=== PATIENT | male | born 1975 | race African-American/Black ===

== ENCOUNTER 2019-06-26 15:48 | Emergency (ER) | payer SELFPAY ==
[2019-06-26 16:57] VITALS: BP 173/93
--- NOTE | 2019-06-26 17:45 | RAD ---
Chest, PA and Lateral: Technique: PA and lateral views of the chest were obtained. History: Cough. Comparison: None. Findings: The heart size grossly appears unremarkable. Mild right lung base airspace opacities likely atelectasis or infiltrate. IMPRESSION: Mild right lung base airspace opacity likely atelectasis or infiltrate. Follow-up to resolution. Electronically signed by: Jax Kwan MD (06/26/2019 5:42 PM) [facility]
[2019-06-26] MEDS ORDERED: ALBU2.5V8 IH (18:24)
[2019-06-26] MEDS ORDERED: DOXY100T PO (18:24)
[2019-06-26] MEDS ORDERED: BENZ100C PO (18:24)
[2019-06-26] MEDS ORDERED: PRED50TA PO (18:24)
--- NOTE | 2019-06-26 18:25 | PHYS DOC ---
Past Medical History Past Medical History: No Pertinent History (DAMION NOE APRN) Past Surgical History: No Surgical History (DAMION NOE APRN) Alcohol Use: None Drug Use: Marijuana (DAMION ONE APRN) Attending Signature I have participated in the care of this patient and I have reviewed and agree with all pertinent clinical information above including history, exam, and recommendations. (RUTH LOWRY MD) Adult General Chief Complaint Chief Complaint: FLU SYMPTOM HPI HPI Patient is a 44 year old male who presents to the ED today with a fever cough and chills that began 4 days ago. Patient reports the son has influenza B. (DAMION NOE APRN) Review of Systems Review of Systems Constitutional: Reports fever and chills Eyes: Denies change in visual acuity, redness, or eye pain [] HENT: Denies nasal congestion or sore throat [] Respiratory: Reports cough denies shortness of breath [] Cardiovascular: No additional information not addressed in HPI [] GI: Denies abdominal pain, nausea, vomiting, bloody stools or diarrhea [] : Denies dysuria or hematuria [] Musculoskeletal: Denies back pain or joint pain [] Integument: Denies rash or skin lesions [] Neurologic: Denies headache, focal weakness or sensory changes [] All other systems were reviewed and found to be within normal limits, except as documented in this note. (DAMION NOE APRN) Allergies Allergies Allergies Coded Allergies Type Severity Reaction Last Updated Verified No Known Drug Allergies 08/06/14 No (RUTH LOWRY MD) Physical Exam Physical Exam Constitutional: Well developed, well nourished, no acute distress, non-toxic appearance. [] HENT: Normocephalic, atraumatic, bilateral external ears normal, oropharynx moist, no oral exudates, nose normal. [] Eyes: PERRLA, EOMI, conjunctiva normal, no discharge. [] Neck: Normal range of motion, no tenderness, supple, no stridor. [] Cardiovascular:Heart rate regular rhythm, no murmur [] Lungs & Thorax: Bilateral breath sounds clear to auscultation [] Abdomen: Bowel sounds normal, soft, no tenderness, no masses, no pulsatile masses. [] Skin: Warm, dry, no erythema, no rash. [] Back: No tenderness, no CVA tenderness. [] Extremities: No tenderness, no cyanosis, no clubbing, ROM intact, no edema. [] Neurologic: Alert and oriented X 3, normal motor function, normal sensory function, no focal deficits noted. [] Psychologic: Affect normal, judgement normal, mood normal. [] (DAMION NOE APRN) Current Patient Data Vital Signs Vital Signs Date Time Temp Pulse Resp B/P (MAP) Pulse Ox O2 Delivery O2 Flow Rate FiO2 06/26/19 16:57 98.8 114 20 173/93 (119) 97 Room Air 98.8 (RUTH LOWRY MD) EKG EKG [] (DAMION NOE APRN) Radiology/Procedures Radiology/Procedures []PROCEDURE: CHEST PA & LATERAL Chest, PA and Lateral: Technique: PA and lateral views of the chest were obtained. History: Cough. Comparison: None. Findings: The heart size grossly appears unremarkable. Mild right lung base airspace opacities likely atelectasis or infiltrate. IMPRESSION: Mild right lung base airspace opacity likely atelectasis or infiltrate. Follow-up to resolution. Electronically signed by: Jax Burgess MD (06/26/2019 5:42 PM) [facility] DICTATED and SIGNED BY: JAX BURGESS MD DATE: 06/26/191741 (DAMION NOE APRN) Course & Med Decision Making Course & Med Decision Making Pertinent Labs and Imaging studies reviewed. (See chart for details) This is a 44-year-old male patient presenting to the ED today with a fever, cough and chills for 4 days. Chest x-ray noted for possible atelectasis or infiltrate. We will send patient home on doxycycline to cover him for pneumonia. Tylenol/Motrin for pain or fever. Follow-up with primary care doctor in [place] [facility]. (DAMION NOE APRN) Dragon Disclaimer Dragon Disclaimer This electronic medical record was generated, in whole or in part, using a voice recognition dictation system. (DAMION NOE APRN) Departure Departure Impression: Primary Impression: Fever Additional Impression: Right lower lobe pulmonary infiltrate Disposition: ADMITTED INPATIENT Condition: STABLE Referrals: NO PCP (PCP) Follow-up with your own doctor in 1-2 weeks Patient Instructions: Fever, Adult, [id number], Pneumonia, Adult, [id number] Additional Instructions: You were evaluated in the emergency room, your chest x-ray was noted for possible pneumonia. We put you on antibiotics. Please take them as prescribed until completed. Follow-up with your own doctor in 1-2 weeks. Scripts Prednisone (PREDNISONE) 50 Mg Tablet 1 TAB PO DAILY, #5 TAB Prov: DAMION NOE APRN 06/26/19 Albuterol Sulfate (Proair Hfa) 8.5 Gm Hfa.aer.ad 2 PUFF IH PRN Q4-6HRS PRN for wheezing for 21 Days, #1 INHALER 0 Refills Prov: DAMION NOE APRN 06/26/19 Benzonatate (TESSALON PERLE) 100 Mg Capsule 1 CAP PO TID, #30 CAP Prov: DAMION NOE APRN 06/26/19 Doxycycline Hyclate (DOXYCYCLINE HYCLATE) 100 Mg Tablet 1 TAB PO BID, #14 TAB Prov: DAMION NOE APRN 06/26/19 Problem Qualifiers Primary Impression: Fever Fever type: unspecified Qualified Codes: R50.9 - Fever, unspecified DAMION NOE APRN Jun 26, 2019 18:24 RUTH LOWRY MD Jun 27, 2019 02:15
== END 2019-06-26 18:42 | disposition other institution (70) ==
LOC: ER 15:48
DX: R50.9 Fever, unspecified (principal); R91.8 Other nonspecific abnormal finding of lung field; F12.90 Cannabis use, unspecified, uncomplicated
CPT/HCPCS: 71046; 99284

== ENCOUNTER 2021-02-04 20:36 | Emergency (ER) | payer SELFPAY ==
[~2021-02-04] VITALS: Ht 185.4 cm; Wt 140.5 kg
[~2021-02-04 20:36] MED LIST: ALBU2.5V8 IH; BENZ100C PO; DOXY100T PO; PRED50TA PO
--- NOTE | 2021-02-04 23:07 | PHYS DOC ---
Past Medical History Past Medical History: High Cholesterol, Hypertension Past Surgical History: No Surgical History Smoking Status: Current Every Day Smoker Alcohol Use: None Drug Use: Marijuana General Adult EDM: Chief Complaint: SHORTNESS OF BREATH HPI: HPI: Patient is a 45 year old male who presents with shortness of breath and chest tightness for the past five days. Also reports associated fevers, myalgias, and loss of taste/smell. Believes he was exposed to COVID from his step-son who recently had it. He had a negative COVID test several days ago. He has not been vaccinated. No alleviating/aggravating factors. Denies cough, congestion, sore throat, abdominal pain, or nausea/vomiting/diarrhea. Review of Systems: Review of Systems: Constitutional: Reports fevers. Denies chills Eyes: Denies redness or eye pain HENT: Reports loss of taste/smell. Denies nasal congestion or sore throat Respiratory: Reports shortness of breath. Denies cough Cardiovascular: Reports chest tightness. Denies palpitations GI: Denies abdominal pain, nausea, or vomiting : Denies dysuria or hematuria Musculoskeletal: Reports myalgias. Denies back pain or joint pain Integument: Denies rash or skin lesions Neurologic: Denies headache, focal weakness or sensory changes Complete systems were reviewed and found to be within normal limits, except as documented in this note. Heart Score: C/O Chest Pain: Yes HEART Score for Chest Pain: HEART Score for Chest Pain Response (Comments) Value History Slighlty/Non-Suspicious 0 ECG Normal 0 Age >45 - < 65 1 Risk Factors 1 or 2 Risk Factors 1 Troponin < Normal Limit 0 Total 2 Risk Factors: Risk Factors: DM, Current or recent (<one month) smoker, HTN, HLP, family history of CAD, obesity. Risk Scores: Score 0 - 3: 2.5% MACE over next 6 weeks - Discharge Home Score 4 - 6: 20.3% MACE over next 6 weeks - Admit for Clinical Observation Score 7 - 10: 72.7% MACE over next 6 weeks - Early Invasive Strategies Allergies: Allergies: Allergies Coded Allergies Type Severity Reaction Last Updated Verified No Known Drug Allergies 08/06/14 No Physical Exam: PE: Constitutional: Well developed, well nourished, no acute distress, non-toxic appearance HENT: Normocephalic, atraumatic Eyes: PERRL, EOMI, conjunctiva normal, no discharge Neck: Normal range of motion, no tenderness, supple Lungs & Thorax: No respiratory distress, equal chest rise and fall. Diffuse wheezes throughout the left lung noriega. Heart tachycardic and regular. Abdomen: Soft, no tenderness Skin: Warm, dry, no erythema, no rash Back: No tenderness, no CVA tenderness Extremities: No tenderness, ROM intact, no edema Neurologic: Alert and oriented X 3, normal motor function, normal sensory function, no focal deficits noted Psychologic: Affect normal, judgment normal Current Patient Data: Vital Signs: Vital Signs Date Time Temp Pulse Resp B/P (MAP) Pulse Ox O2 Delivery O2 Flow Rate FiO2 02/04/21 21:33 108 94 Room Air EKG: EK: 115 BPM, sinus tachycardia, occasional PVCs note, no ST segment elevation, QRS 72ms, QT/QTc 302/419ms Radiology/Procedures: Radiology/Procedures: Exam: Chest one view INDICATION: Cough, Covid TECHNIQUE: Frontal view of the chest Comparisons: None FINDINGS: The cardiomediastinal silhouette and pulmonary vessels are within normal limits. Linear bandlike opacity at the left lung base. No pleural effusion. IMPRESSION: Left basilar atelectasis Electronically signed by: Danyel Nash MD (02/04/2021 11:47 PM) [facility] Course & Med Decision Making: Course & Med Decision Making 45 year old male presents with history and physical consistent with COVID infection. Labs and imaging obtained and posted to chart. Administered dexamethasone and Tylenol with improvement of symptoms. Vitals remained stable while in the ED and patient never required supplemental O2. Patient stable for discharge with outpatient follow-up with PCP. Discussed findings and plan with patient, who acknowledges understanding and agreement. Timoteo Disclaimer: Timoteo Disclaimer: This electronic medical record was generated, in whole or in part, using a voice recognition dictation system. Departure Departure Impression: Primary Impression: Viral syndrome Additional Impression: Suspected 2019 novel coronavirus infection Disposition: HOME / SELF CARE / HOMELESS Condition: STABLE Referrals: NO PCP (PCP) Patient Instructions: Viral Syndrome Additional Instructions: You have been tested for or diagnosed with COVID-19. It is an infection caused by a new type of coronavirus. COVID-19 will cause cold-like or mild flu symptoms in most. It can cause more severe symptoms like problems breathing in some. There is no treatment for COVID-19. The body will clear the infection over time. Self-care will help to ease discomfort. Steps to Take: Self-Care Rest as needed. Healthy habits may help you feel better. Steps include: Choose healthy foods including fruits and vegetables. Drink water throughout the day. Get plenty of sleep each night. If you smoke, try to quit. It may ease breathing. Avoid alcohol. Keep Others Healthy The virus can spread to others. Droplets are released every time you sneeze or cough. The droplets can get into the mouth, nose, or eyes of people near you and lead to infection. To lower the chances of spreading COVID-19 to others: Stay at home until your doctor has said it is safe to leave. If you tested positive this will mean staying isolated until both of the following are true: At least 7 days have passed since the start of illness. You are free of fever for at least 72 hours without the use of medicine. During this time: - Avoid public areas, events, or transportation. Do not return to work or school until your doctor has said it is safe to do so. - Call ahead if you need to go to a medical center. Let them know you may have COVID-19. It will help them guide you where to go. They may also ask you to wear a facemask when you come to the office. - If you call for emergency medical services, let them know you may have COVID- 19. While at home: - Try to avoid close contact with others. Stay about 6 feet away. - If possible, spend most of your time in a separate room from others. - Use a face mask if you will be in close contact with others such as sharing a room or vehicle. - Have someone wipe down common surfaces in the home. Use household talent sourcer every day on areas like doorknobs, counters, or sinks. - Cough or sneeze into a tissue. Throw the tissue away right after use. If a tissue is not available, cough or sneeze into your elbow. - Wash your hands often. Wash them after sneezing or coughing. Use soap and water and wash for at least 20 seconds. Alcohol based hand pigs feet cleaner can be used if soap and water is not available. - Do not prepare food for others. Avoid sharing personal items like forks, spoons, or toothbrushes. - Avoid close contact with pets while you are sick. There is no evidence of the virus passing to pets. This is a safety step until more is known about this virus. Isolation can be frustrating. Social interaction can help. Keep in touch with friends and family through phone and tech options. You can still interact with others in your home, just keep a safe distance of about 6 feet. Follow-up: Your doctors office will check in with you to see if there are any changes in your health. You may be asked to keep track of symptoms to share with them. They will also let you know when you are clear to be in public again. Problems to Look Out For: Contact your doctor if your recovery is not going as you expect. Get emergency care if you have problems such as: - Trouble breathing - Nonstop chest pain or pressure - Changes in awareness, confusion, or problems waking - Lips or face have bluish color - Worsening of symptoms If you think you have an emergency, call for emergency medical services right away. As taken from [facility] JAYDEN NG DO Feb 04, 2021 23:07
[2021-02-04] MEDS ORDERED: DEXAMETHASONE 4 MG TABLET PO ONE (23:15)
[2021-02-04] MEDS ORDERED: ACETAMINOPHEN 500 MG TABLET PO ONE (23:15)
--- NOTE | 2021-02-04 23:50 | RAD ---
Exam: Chest one view INDICATION: Cough, Covid TECHNIQUE: Frontal view of the chest Comparisons: None FINDINGS: The cardiomediastinal silhouette and pulmonary vessels are within normal limits. Linear bandlike opacity at the left lung base. No pleural effusion. IMPRESSION: Left basilar atelectasis Electronically signed by: Danyel Nash MD (02/04/2021 11:47 PM) [facility]
[2021-02-05 00:46] VITALS: BP 135/78
--- NOTE | 2021-02-05 03:06 | EKG ---
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
== END 2021-02-05 01:10 | disposition home or self-care (01) ==
LOC: ER 20:36
DX: B34.9 Viral infection, unspecified (principal); Z20.822 Contact with and (suspected) exposure to COVID-19; E78.00 Pure hypercholesterolemia, unspecified; I10 Essential (primary) hypertension; F17.200 Nicotine dependence, unspecified, uncomplicated
CPT/HCPCS: 36415; 71045; 84484; 93005; 99285; U0003; U0005